=== PATIENT | male | born 1980 | race Caucasian/White ===

== ENCOUNTER 2020-01-17 07:15 | Emergency (ER) | payer BC, SELFPAY ==
[2020-01-17 07:28] VITALS: BMI 36.6
--- NOTE | 2020-01-17 07:28 | ED_ITS ---
HPI - Eye Problem General: Chief complaint: Eye Problems Stated complaint: LEFT EYE PAIN Time Seen by Provider: 01/17/20 07:27 Source: patient Mode of arrival: ambulatory Limitations: no limitations History of Present Illness: HPI Narrative: Patient is a very nice 39-year-old male who presents to ED today with a complaint of left eye/lower eyelid pain that has been present over the past few days. He is recently started noticing some clear matting in the mornings. He has not noticed any change in vision. No injury or trauma to the eye. MD chief complaint: eye pain Onset (ago): day(s) Onset description: gradual Duration: constant Location: left eye Eye Symptoms: pain and discharge Place: home Mechanism: none Severity: mild Associated symptoms: Reports no associated symptoms; Denies fever(s), headache(s), nausea, neck pain or vomiting Treatments Prior to Arrival: none Related Data: Patient tetanus UTD: Yes Review of Systems Const: Denies: fever(s) or chills Eyes: Reports: eye discomfort and eye discharge; Denies: change in vision, blurry vision, blind spots, photophobia, eye redness, yellow eyes, floaters or seeing flashes ENMT: Denies: throat pain, enlarged tonsils or odynophagia Card: Denies: chest pain Resp: Denies: dyspnea GI: Denies: abdominal pain, nausea or vomiting Musc: Denies: neck pain or back pain Skin/Breast: Denies: rash Neuro: Denies: headache(s) Physical Exam Const: COMMON NORMALS: no acute distress, patient oriented x3, no limitations and alert HENMT: COMMON NORMALS: normocephalic, atraumatic, hearing grossly normal bilaterally, external ears normal, EAC's normal, TM's normal bilaterally, Normal external nose present, Normal nasal mucous membranes and turbinates present, moist oral mucous membranes and oropharynx normal HEAD & SCALP: normal to inspection, normocephalic and atraumatic FACE & SINUS: normal facial exam and sinuses nontender NOSE: Normal external nose present, Normal nares present, No nasal polyps present and Normal nasal mucous membranes and turbinates present EXTERNAL EAR: Yes external ears normal EXTERNAL AUDITORY CANAL: EAC's normal TYMPANIC MEMBRANE: TM's normal bilaterally MOUTH: Normal oral and palatal mucosa present, lip normal and tongue normal THROAT: posterior oropharynx normal, tonsils normal and uvula midline Eye: COMMON NORMALS: Equal, round and reactive pupils present, EOMs intact bilaterally, conjunctivae normal and no scleral icterus GENERAL EYE: normal light reflex VISUAL ACUITY: Yes acuity normal and Yes other (see RN notes) VISUAL BUNN: Yes peripheral vision loss ALIGNMENT: Yes alignment normal PERIORBITAL: periorbital findings normal EYELID: eyelid abnormality (small hordeolum to L int lower eyelid; small amount of erythema to external) CONJUNCTIVA: Yes conjunctivae normal SCLERA: sclerae normal CORNEA: Yes corneas normal PUPIL: Yes Equal, round and reactive pupils present DIRECT OPHTHALMOSCOPY: Yes normal light reflex Neck/C-Spine: COMMON NORMALS: no lymphadenopathy Neuro: COMMON NORMALS: patient oriented x3 SENSORIUM/ORIENTATION: Yes alert Course Vital Signs: Vital signs: Vital Signs Temperature 98.2 F 01/17/20 07:32 Pulse Rate 86 01/17/20 07:32 Respiratory Rate 18 01/17/20 07:32 Blood Pressure 178/114 01/17/20 07:32 Pulse Oximetry 94 01/17/20 07:32 Discharge Plan Discharge Patient Disposition: Home, Self-Care Clinical Impression: Internal hordeolum of left eye Qualifiers: Eyelid: lower Qualified Code(s): H00.025 - Hordeolum internum left lower eyelid Condition: Stable Prescriptions: New Polytrim 10,000 unit- 1 mg/mL drops 1 drop ophthalmic (eye) QID 7 Days Qty: 10 RF: 0 Discharge Orders: Discharge Order (Routine); Ordered 01/17/20 Ordered By: Zaina Samson Patient Instructions: Rhoda (ED), Rhoda (Hordeolum) Activity Restrictions/Additional Instructions: Apply warm compresses to eye for 15-20 mins as much as possible throughout the day. Seek re-evaluation for worsening pain, visual changes, no improvement over the next 1-2 weeks. Discharge Date/Time: 01/17/20 07:41 Coding Level of Care Code ED Health Service Worker for Arslan Carlton
[2020-01-17 07:32] VITALS: BP 178/114; PULSE 86; RESP 18; TEMP 36.8; O2SAT 94
== END 2020-01-17 07:41 | disposition home or self-care (01) ==
PROVIDERS: Emergency Provider Physician Assistant
DX: H00.025 Hordeolum internum left lower eyelid (principal)
CPT/HCPCS: 12345; 99281